=== PATIENT | male | born 1955 | race Two or more races ===

== ENCOUNTER 2019-02-01 13:34 | Emergency (ER) | payer OTHER ==
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
[2019-02-01 13:48] VITALS: BP 132/92; PULSE 71; TEMP 98; BMI 26.3
[2019-02-01] MEDS ORDERED: ACETAMINOPHEN 500 MG TABLET (FP) PO ONE (15:30)
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
[2019-02-01] MEDS ORDERED: ACETAMINOPHEN 500 MG TABLET (FP) ONE (15:42)
[2019-02-01] MEDS ORDERED: NAPROXEN 500 MG TABLET (FP) PO ONE (17:44)
[2019-02-01] MEDS ORDERED: NAPROXEN 500 MG TABLET (FP) ONE (17:51)
== END 2019-02-01 17:55 | disposition home or self-care (01) ==
LOC: JERFT 13:34
DX: S09.8XXA Other specified injuries of head, initial encounter (principal); S09.93XA Unspecified injury of face, initial encounter; G44.319 Acute post-traumatic headache, not intractable; Y04.2XXA Assault by strike against or bumped into by another person, initial encounter; Y93.89 Activity, other specified; Y92.811 Bus as the place of occurrence of the external cause; Y99.0 Civilian activity done for income or pay; Y07.9 Unspecified perpetrator of maltreatment and neglect
CPT/HCPCS: 70450-TC; 70486-TC; 99281-25